=== PATIENT | female | born 1975 | race Caucasian/White ===

== ENCOUNTER 2020-05-28 15:31 | Emergency (ER) | payer MEDICAID ==
[~2020-05-28] VITALS: Ht 149.9 cm; Wt 55.0 kg
[2020-05-28 16:21] VITALS: BP 145/89
== END 2020-05-28 19:06 | disposition left against medical advice (07) ==
LOC: ER 15:31
DX: M25.531 Pain in right wrist (principal); Z53.21 Procedure and treatment not carried out due to patient leaving prior to being seen by health care provider